=== PATIENT | male | born 2005 | race Caucasian/White ===

== ENCOUNTER 2024-01-06 22:37 | Emergency (ER) | payer SELFPAY ==
[2024-01-06 22:45] VITALS: RESP 18; TEMP 98.6; BMI 19.5
[2024-01-06] MEDS ORDERED: ACETAMINOPHEN 325 MG TABLET (FP) ONE (23:36)
[2024-01-06] MEDS: ACETAMINOPHEN 325 MG TABLET (FP) PO ONE (23:39)
[2024-01-07 00:22] VITALS: BP 110/54; PULSE 67
== END 2024-01-07 00:45 | disposition home or self-care (01) ==
LOC: JER 22:37
DX: R07.89 Other chest pain (principal); M54.6 Pain in thoracic spine; M54.2 Cervicalgia; M79.10 Myalgia, unspecified site; X50.0XXA Overexertion from strenuous movement or load, initial encounter; Y93.F2 Activity, caregiving, lifting
CPT/HCPCS: 71046-TC-FY; 93005; 93010; 99284-25